=== PATIENT | female | born 1940 | race Caucasian/White ===

== ENCOUNTER 2018-05-27 10:11 | Emergency (ER) | payer MEDICARE, OTHER ==
[~2018-05-27] VITALS: Ht 160 cm; Wt 73.9 kg
[2018-05-27] MEDS ORDERED: CARV3.125 PO (10:52)
[2018-05-27] MEDS ORDERED: SIMV40 PO (10:52)
[2018-05-27] MEDS ORDERED: LISI20 PO (10:52)
[2018-05-27] MEDS ORDERED: LEVSOD75 PO (10:53)
[2018-05-27] MEDS ORDERED: ASPI325 PO (10:54)
[2018-05-27] MEDS ORDERED: CALCIUM 600 +1 EAC5 PO (10:54)
== END 2018-05-27 11:41 | disposition home or self-care (01) ==
LOC: ER 10:11
DX: M79.661 Pain in right lower leg (principal); M25.551 Pain in right hip; I10 Essential (primary) hypertension; E78.00 Pure hypercholesterolemia, unspecified; E03.9 Hypothyroidism, unspecified; Z88.0 Allergy status to penicillin; Z88.2 Allergy status to sulfonamides
CPT/HCPCS: 93971; 99283-25